=== PATIENT | male | born 1975 | race Hispanic/Latino ===

== ENCOUNTER 2017-01-24 19:04 | Inpatient (IN) ==
[2017-01-24 19:28] LABS: MANUAL DIFF NEEDED? NO
[2017-01-24 19:30] LABS: BASO% 0.1 % (0.0-0.8); EOS# 0.13 X1000 (0.0-0.7); EOS% 0.9 % (0.0-10.0); HEMATOCRIT 48.1 % (42.0-52.0); HEMOGLOBIN 17.3 g/dL (14.0-18.0); IMM GRAN# 0.07 X1000 (0.0-0.04); IMM GRAN% 0.5 % (0.0-0.5); LYMPH# 2.95 X1000 (1.2-3.4); MCH 31.4 PG (27-31); MCV 87.3 FL (81-99); MONO# 0.91 X1000 (0.11-0.59); MONO% 6.5 % (1.7-9.3); MPV 10.7 FL (7.4-10.4); PLT 250 X1000 (130-400); RBC 5.51 XMIL (4.7-6.1)
[2017-01-24 19:49] LABS: AGAP 11; ALBUMIN 4.4 g/dL (3.5-5.0); ALKALINE PHOSPHATASE 67 U/L (32-122); AMYLASE 96 U/L (20-200); BUN 15 mg/dL (8-22); CALCIUM 8.9 mg/dL (8.8-10.2); CHLORIDE 95 mmol/L (98-107); COSMO 274; GOT 19 U/L (10-34); GPT 25 U/L (10-44); LIPASE 74 U/L (13-60); POTASSIUM 3.5 mmol/L (3.5-5.1); SODIUM 136 mmol/L (136-145); TCO2 30 mmol/L (25-35); TOTAL BILIRUBIN 0.42 mg/dL (0.20-1.00); TOTAL PROTEIN 6.8 g/dL (6.3-8.3)
[2017-01-24 20:03] LABS: URINE CULTURE NEEDED? NO; URINE MICRO REVIEW NEEDED? NO; URINE SOURCE CATH
[2017-01-24 20:12] LABS: BILIRUBIN URINE NEGATIVE (NEGATIVE); BLOOD URINE NEGATIVE (NEGATIVE); COLOR YELLOW; GLUCOSE URINE NEGATIVE (NEGATIVE); LEUKOCYTES URINE NEGATIVE (NEGATIVE); NITRITE URINE NEGATIVE (NEGATIVE); PROTEIN URINE NEGATIVE (NEGATIVE); SP GRAVITY URINE 1.018; TURBIDITY URINE CLEAR (CLEAR); UROBILINOGEN URINE NORMAL (NORMAL)
[2017-01-24 20:13] LABS: UR EPITHELIAL CELLS <10 /HPF (<10); URINE BACTERIA NEGATIVE /HPF; URINE RBC <10 /HPF (<10); URINE WBC <10 /HPF (<10)
[2017-01-24] MEDS ORDERED: ZOSYN 3.375 GM/NS 3.375 GM/50 ML IVPB IV ONE (23:54)
[2017-01-24] MEDS ORDERED: ZOFRAN IV PRN (23:54)
[2017-01-24] MEDS ORDERED: NS 1,000 ML IV ONE (23:54)
--- NOTE | 2017-01-24 23:54 | PROVIDER DOCUMENTATION ---
This chart was entered by Grace Mendoza Scribe, acting as scribe for Juve Almazan MD. HPI-Abdominal Pain/GI Problem - General Chief Complaint: Abdominal Pain Stated Complaint: RT. ABD. PAIN Time Seen by Provider: 01/24/17 22:12 Source: patient Allergies/Adverse Reactions: Patient Allergies Allergy/AdvReac Type Severity Reaction Status Date / Time No Known Allergies Allergy Verified 02/23/16 15:04 Home Medications: Home Medication List Medication Instructions Recorded Confirmed Last Taken Type Naproxen [Naprosyn] 250 mg PO BID #20 tablet 02/23/16 Unknown Rx - History of Present Illness-ABD Nature of Presenting Problems: 41 year old M presents to the ED with a cc of RUQ and RLQ ABD pain with an onset of yesterday. Pt states that he has had fever and diarrhea also. PT has been taking norco, amoxicillin, and monteleukast for a ear infection Abdominal Pain Onset Location: reports: RUQ, RLQ Pain Radiation: reports: no radiation Quality of Pain: reports: aching Severity in ED: reports: mild Onset/Duration: reports: 24 hours ago Timing: reports: still present Associated Symptoms: reports: diarrhea, fever/chills Bruising or Bleeding Gums?: No Similar Symptoms Previously?: No Recently seen or treated by another doctor?: No Review of Systems - Adult - REVIEW OF SYSTEMS - ADULT Constitutional: reports: fever. denies: chills Eyes: reports: no symptoms reported Ears, Nose, Mouth & Throat: reports: no symptoms reported Cardiovascular: denies: chest pain, palpitations Respiratory: denies: cough, shortness of breath Gastrointestinal: reports: abdominal pain, diarrhea. denies: nausea, vomiting Genitourinary: reports: no symptoms reported Musculoskeletal: reports: no symptoms reported Integumentary: reports: no symptoms reported Neurological: reports: no symptoms reported Psychiatric: reports: no symptoms reported Endocrine: reports: no symptoms reported Hematologic/Lymphatic: reports: no symptoms reported Allergic/Immunologic: reports: no symptoms reported All Other Systems: Reviewed and Negative Past History - Adult - PAST MEDICAL HISTORY-ADULT Review of Records: reports: Nursing Assessment Review, Medications Reviewed Major Childhood Illnesses: reports: denies history Cardiovascular: reports: denies history Respiratory: reports: denies history Gastrointestinal: reports: denies history Obstetrical/Gynecological: reports: denies history Genitourinary: reports: denies history Musculoskeletal: reports: denies history Neurological: reports: denies history Psychiatric: reports: denies history Endocrine/Immune: reports: denies history Other Conditions: reports: denies history - PRIOR SURGERIES/PROCEDURES Surgical/Procedure History: reports: none - IMMUNIZATION STATUS Childhood Immunizations: See Nurse Assessment Flu Vaccine: See Nurse Assessment - FAMILY HISTORY Family History: reviewed, not pertinent - SOCIAL HISTORY Smoking: cigarettes Provider spent 3-5 mins advising pt. on dangers of tobacco.: Discussed manners to quit use, and f/u contacts for add'l counseling. Substance Use: none/never Alcohol Use Frequency: never Physical Exam-General - PHYSICAL EXAM-ADULT Initial Vital Signs Reviewed: Yes - CONSTITUTIONAL General Appearance: appears well, alert, no apparent distress - RESPIRATORY Respiratory: chest non-tender, lungs clear, normal breath sounds - CARDIOVASCULAR Cardiovascular: normal peripheral pulses, regular rate, rhythm, no edema - GASTROINTESTINAL (ABDOMEN) Abdominal Exam: normal bowel sounds, soft, tenderness (RUQ, RLQ), obturator sign , psoas - MUSCULOSKELETAL Back Exam: normal inspection, no CVA tenderness, no vertebral tenderness Extremity: normal gait, normal inspection - SKIN Integumentary: normal color, normal turgor, warm/dry - PSYCHIATRIC Psych/Mental Status: normal mood/affect, normal thought content, normal thought process, oriented x 3 Progress - PLAN OF CARE/RESULTS Progress/Plan/Lab Results: Vital Signs - 8 hr 01/24/17 19:14 Temperature 97.8 F Pulse Rate 72 Respiratory Rate 18 Blood Pressure 134/87 O2 Sat by Pulse Oximetry 99 Laboratory Results - last 24 hr 01/24/17 01/24/17 01/24/17 19:17 19:17 19:19 WBC 14.06 H RBC 5.51 Hgb 17.3 Hct 48.1 MCV 87.3 MCH 31.4 H MCHC 36.0 RDW Std Deviation 12.3 Plt Count 250 MPV 10.7 H Immature Gran % (Auto) 0.5 Neut % (Auto) 71.0 Lymph % (Auto) 21.0 [place] % (Auto) 6.5 Eos % (Auto) 0.9 Baso % (Auto) 0.1 Immature Gran # (Auto) 0.07 H Neut # (Auto) 9.98 H Lymph # (Auto) 2.95 [place] # (Auto) 0.91 H Eos # (Auto) 0.13 Baso # (Auto) 0.02 Sodium 136 Potassium 3.5 Chloride 95 L Carbon Dioxide 30 Anion Gap 11 BUN 15 Creatinine 0.7 Estimated GFR/1.73 m2 > 60 BUN/Creatinine Ratio 21 Glucose 112 H Calculated Osmolality 274 Calcium 8.9 Total Bilirubin 0.42 AST 19 ALT 25 Alkaline Phosphatase 67 Total Protein 6.8 Albumin 4.4 Globulin 2.4 Albumin/Globulin Ratio 1.8 Amylase 96 Lipase 74 H Urine Source CATH Urine Color YELLOW Urine Turbidity CLEAR Urine pH 6.0 Ur Specific [place] 1.018 Urine Protein NEGATIVE Ur Glucose (Stick) NEGATIVE Ur Ketones (Stick) NEGATIVE Urine Blood NEGATIVE Urine Nitrite NEGATIVE Urine Bilirubin NEGATIVE Urobilinogen Dipstick NORMAL Urine Leukocytes NEGATIVE Urine WBC (Auto) <10 Urine RBC (Auto) <10 U Epithel Cells (Auto) <10 Urine Bacteria (Auto) NEGATIVE Orders Category Date Time Status Saline Loc DIRECTED Care 01/24/17 19:17 Active NPO Diet 01/24/17 19:17 Active AMYLASE [CHEM] Stat Lab 01/24/17 19:17 Completed CBC WITH ELECTRONIC DIFF [HEME] Stat Lab 01/24/17 19:17 Completed COMPREHENSIVE METABOLIC PANEL [CHEM] Stat Lab 01/24/17 19:17 Completed LIPASE [CHEM] Stat Lab 01/24/17 19:17 Completed URINALYSIS W/POSS RFLX CULT-1 [URINALYSIS] Stat Lab 01/24/17 19:19 Completed Result Diagrams: 01/24/17 19:17 01/24/17 19:17 - CT/MRI 1 CT Study: Abdomen, Pelvis Impression: Abnormal CT Results: appendicitis: Dr. Singleton - CONSULTS/PCP/HOSPITALIST Notification #1 *Consult/PCP/Hospitalist*: Dr. Singleton(radiologist) Time Discussed: 23:47 Reason/Comments: acute appendicitis #2 Consult: Dr. Muñiz(surgeon) Time Discussed: 23:48 Reason/Comments: consult for admission Consult Disposition: Admit (antibiotics, admit to him, and keep NPO) Departure - Departure Date of Disposition Decision: 01/24/17 Time of Disposition Decision: 23:52 DIAGNOSIS: Acute appendicitis Qualifiers: Acute appendicitis type: with localized peritonitis Qualified Code(s): K35.3 - Acute appendicitis with localized peritonitis Disposition: ADMITTED INPATIENT 09 Certified Medical Emergency: Emergent Condition: Good Referrals and Follow-Ups: None,PCP [Primary Care Provider] - Discharge Education: Smoking Cessation, Tips for Success - Critical Care Note This patient required my direct & personal management of CC.: No Attestation - Physician/ RONALD Attestation Patient care was provided by Advanced Practice Provider:: No The physician spent face to face time with patient:: Yes (only me) Advanced Practice Provider documentation review:: Supervising physician onsite and consulted in the evaluation and care of this patient. The physician did have a face to face encounter with the patient. This chart was documented by the indicated scribe, (Grace Mendoza Scribe) and accurately reflects the services I performed and decisions made by me, Juve Almazan MD, as attested by the provider's signature.
[2017-01-25] MEDS: MORPHINE IV PRN ×4 (00:15→09:56)
--- NOTE | 2017-01-25 05:07 | EKG Report ---
Test Performed on : 01/25/2017 00:02:16 AM Test Reason : CP Blood Pressure : / mmHG Vent. Rate : 066 BPM Atrial Rate : 066 BPM P-R Int : 160 ms QRS Dur : 082 ms QT Int : 388 ms P-R-T Axes : 038 011 046 degrees QTc Int : 406 ms Normal sinus rhythm. Normal ECG When compared with ECG of 23-FEB-2016 13:47, No significant change was found Unconfirmed Result
[2017-01-25] MEDS: ZOSYN 3.375 GM/NS 3.375 GM/50 ML IVPB IV SCH ×2 (05:52→10:59)
--- NOTE | 2017-01-25 06:16 | HISTORY AND PHYSICAL ---
ADMITTING DIAGNOSIS: Appendicitis. HISTORY OF PRESENT ILLNESS: A 41-year-old, male presenting with a couple day history of right upper quadrant and right lower quadrant pain. He also reports fever and diarrhea. He had been taking [place] and amoxicillin and montelukast for an ear infection. This had toned it down a little bit but it continued to get worse. He described it as aching and in the right lower quadrant. He was admitted, had a CT scan that showed appendicitis. He still reports pain at this time. PAST MEDICAL HISTORY: None. PAST SURGICAL HISTORY: None. MEDICATIONS: Naproxen. ALLERGIES: None. FAMILY HISTORY: Reviewed with patient and noncontributory. SOCIAL HISTORY: The patient does report smoking. REVIEW OF SYSTEMS: A full 10 point review of systems was obtained and negative as specified in the HPI. PHYSICAL EXAMINATION: VITAL SIGNS: Patient is currently afebrile. His vital signs have been stable. GENERAL EXAMINATION: No acute distress but appears uncomfortable. male, looks stated age. HEENT: Normocephalic, atraumatic. Pupils equal, round, reactive to light. Mucous membranes moist. Oropharynx benign. NECK: Supple. Trachea midline. CARDIOVASCULAR: Regular rate and rhythm. LUNGS: Grossly clear. ABDOMEN: Soft. Minimally distended. Tender to palpation in the right lower quadrant at McBurney's point, consistent with appendicitis. EXTREMITIES: Moves all extremities. NEUROLOGIC: Grossly intact. SKIN: No signs of jaundice. VASCULAR: All extremities perfused. LABORATORY: White blood cell count is 14. The remainder of labs reviewed. CT scan independently reviewed and radiology report reviewed. It looks like appendicitis. ASSESSMENT AND PLAN: A 41-year-old, male with appendicitis. Appendicitis. At this time, we will place him on antibiotics and plan for surgical intervention later today. He has been posted. The risks, benefits, and alternatives for the procedure have been discussed. All questions answered. We will get him to continue the intravenous antibiotics until we can do this procedure. cc: Christiano Muñiz MD
--- NOTE | 2017-01-25 06:19 | Diag Imaging Result Doc PS360 ---
EXAM: CT ABD/PELVIS W/ IV CONT ONLY HISTORY: RLQ pain, leukocytosis TECHNIQUE: CT abdomen and pelvis with intravenous contrast. Dose reduction protocol. COMPARISON: None. FINDINGS: The gallbladder is contracted. No calcified gallstones or adjacent inflammation. There is mild fatty infiltration of the liver. Normal spleen, pancreas, adrenal glands, and kidneys. No hydronephrosis. Normal aorta. The left renal vein goes behind the aorta. This is a normal variant. The appendix is distended measuring 8 mm in diameter. Mild adjacent inflammation. No free air. No abscess. No bowel obstruction. There is stool throughout the colon. The urinary bladder is distended and appears normal. Normal prostate. IMPRESSION: 1.Acute appendicitis 2.Constipation 3.Mild fatty infiltration of the liver 4.A preliminary report was given at 11:45 PM Electronically signed by Thomas Singleton 01/25/2017 6:17 AM
--- NOTE | 2017-01-25 07:39 | Diag Imaging Result Doc PS360 ---
CHEST-PORTABLE - 01/24/2017 INDICATION: pre-op TECHNIQUE: COMPARISON: 03/31/2014 FINDINGS: Stable calcified granuloma in the right upper lobe. The lungs are normally expanded and clear. Heart size and mediastinal contours are normal. No pneumothorax or pleural effusion. IMPRESSION: Negative exam. Electronically signed by Carmelo Cabrera 01/25/2017 7:37 AM
[2017-01-25] MEDS ORDERED: VERSED ONE (13:03)
[2017-01-25] MEDS ORDERED: FENTANYL ONE (13:04)
[2017-01-25] MEDS ORDERED: DIPRIVAN 1% ONE (13:04)
[2017-01-25] MEDS ORDERED: QUELICIN (DOSE) ONE (13:05)
[2017-01-25] MEDS ORDERED: XYLOCAINE-MPF 2% ONE (13:05)
[2017-01-25] MEDS ORDERED: ROBINUL ONE ×2 (13:09→14:20)
[2017-01-25] MEDS ORDERED: NEOSTIGMINE ONE ×2 (13:09→14:21)
[2017-01-25] MEDS ORDERED: LR 1,000 ML ONE (13:36)
[2017-01-25] MEDS ORDERED: REGLAN ONE (13:36)
[2017-01-25] MEDS ORDERED: PEPCID ONE (13:36)
[2017-01-25] MEDS ORDERED: SENSORCAINE 0.25%/EPI 1:200,000 ONE (13:36)
[2017-01-25] MEDS ORDERED: TORADOL ONE (14:23)
[2017-01-25] MEDS: MORPHINE ONE ×2 (14:50→14:57)
[2017-01-25] MEDS ORDERED: MORPHINE ONE (15:16)
[2017-01-25] MEDS ORDERED: LR 500 ML ONE (15:24)
--- NOTE | 2017-01-25 15:24 | OPERATIVE NOTE ---
PROCEDURE DATE: 01/25/2017 PREOPERATIVE DIAGNOSIS: Appendicitis. POSTOPERATIVE DIAGNOSIS: Appendicitis. PROCEDURE: Laparoscopic appendectomy. SURGEON: Christiano Muñiz MD. [place] OPERATOR: Dr. Moreno. Dr. Moreno assisted the entire case. ANESTHESIA: General endotracheal. INTRAOPERATIVE FINDINGS: As above. Appendix was inflamed, but not perforated or gangrene. COMPLICATION: None at time of dictation. ESTIMATED BLOOD LOSS: 20 mL. SPECIMENS REMOVED: Appendix. BRIEF HISTORY: Patient is a 41-year-old male presenting with classic symptoms for appendicitis. It was felt the patient would benefit from appendectomy. The risks, benefits, and alternatives were discussed. All questions answered. DESCRIPTION OF PROCEDURE: After informed consent was obtained, the patient was brought to the operative theatre, transferred to operating table, placed in supine position. General endotracheal anesthesia was then performed without complication. A formal time-out was then performed confirming patient, date, procedure. All were in agreement. At that time, attention was given to the abdomen. An infraumbilical incision was made through which using Optiview technique we were able to insert a 12 mm trocar, connect to insufflation. Pneumoperitoneum was achieved. Under direct visualization, placed 2 more trocars, both 5 mm; one in the right upper quadrant and one in the left lower quadrant. Using these, the appendix was identified, elevated. We made a window in the base of the mesoappendix, fired a stapler across the mesoappendix and the base of the appendix. There was some mild bleeding, but it was self-limiting. We irrigated out the abdomen copiously. We placed the appendix into the endobag and brought it out through the infraumbilical incision. We reexamined the staple line. There was no active bleeding. No drainage of succus, no drainage of stool. The small bowel and cecum were intact. We irrigated until we could view the staple lines. Again no bleeding was noted. We then suctioned all the fluid. We closed the infraumbilical incision with a 0 Vicryl and Enoch-Mary device. Removed all trocars, disconnected insufflation. Pneumoperitoneum was released. We then closed all skin incisions with 4-0 Monocryl. The patient tolerated procedure well and was transferred to the recovery room in stable condition. cc: Christiano Muñiz MD
[2017-01-25] MEDS ORDERED: NORCO-10 PO PRN (16:21)
[2017-01-25 18:10] VITALS: BP 110/70
--- NOTE | 2017-03-31 10:31 | ED EKG INTERP ---
This chart was entered by Grace Mendoza Scribe, acting as scribe for Juve Almazan MD. EKG Interpretation - EKG Time of EKG reading by physician:: 00:17 EKG Read and Signed by:: Juve Almazan EKG Interpretation (*Must complete 3 of following elements*): Normal Rate: 66 Rhythm: NSR [place]: normal Attestation - Physician/ RONALD Attestation Patient care was provided by Advanced Practice Provider:: No The physician spent face to face time with patient:: Yes Advanced Practice Provider documentation review:: Supervising physician onsite and consulted in the evaluation and care of this patient. The physician did have a face to face encounter with the patient. This chart was documented by the indicated scribe, (Grace Mendoza Scribe) and accurately reflects the services I performed and decisions made by me, Juve Almazan MD, as attested by the provider's signature.
== END 2017-01-25 18:12 | disposition home or self-care (01) ==
LOC: ED 19:04 → 4N 01-25 01:24
PROVIDERS: ADMIT Surgery; ATTEND Surgery